=== PATIENT | male | born 1965 | race Caucasian/White ===

== ENCOUNTER 2017-03-01 18:42 | Inpatient (IN) | payer BC, OTHER ==
[~2017-03-01] VITALS: Ht 175.3 cm; Wt 96.6 kg
[2017-03-01 18:42] VITALS: BP_SYST 164
[~2017-03-01 18:42] MED LIST: AMLO1TAB15 PO; CANA300T PO; CARV25TA55 PO; CLOP75TA2 PO; EPLE25TA10 PO; EZET10TA PO; HYDR-3924 PO; INSU100V7 SUBCUT; ISOS30TA PO; LIP80 PO; METO-290 PO; NITSL SL; NPH,100V SUBCUT; PRO40 PO; [UNRECOGNIZED DRUG - CODE] PO; [UNRECOGNIZED DRUG - CODE] PO
[2017-03-01] MEDS ORDERED: DEXAMETHASONE SOD PHOSPHATE 10 MG/ML VIAL IVP ONE (19:00)
[2017-03-01] MEDS ORDERED: NACL 0.9% 1,000 ML IV ONE (19:00)
[2017-03-01] MEDS ORDERED: MORPHINE SULFATE 10 MG/ML VIAL IVP ONE (19:00)
[2017-03-01] MEDS ORDERED: PROCHLORPERAZINE EDISYLATE 10 MG/2 ML VIAL IVP ONE (19:00)
[2017-03-01] MEDS ORDERED: ONDANSETRON HCL 4 MG/2 ML VIAL IVP ONE (19:00)
[2017-03-01 19:07] LABS: MEAN CORPUSCULAR HEMOGLOBIN 28 pg (27-31); MEAN CORPUSCULAR HGB CONC 35 % (32-36)
[2017-03-01 19:12] LABS: HEMATOCRIT 46.1 % (36-54); HEMOGLOBIN 16.1 g/dL (14.0-18.0); RED BLOOD CELL COUNT(AUTO) 5.76 MIL/uL (4.2-6.2); WHITE BLOOD COUNT (AUTO) 12.6 K/uL (4.8-10.8)
[2017-03-01 19:13] LABS: MEAN CORPUSCULAR VOLUME 80 fL (79.0-98.0); PLATELET COUNT (AUTO) 231 K/uL (130-430)
[2017-03-01 19:26] LABS: ATYPICAL LYMPHOCYTES % 5 % (0-0); BAND % (MANUAL) 23 % (0-6); BASOPHILS % (MANUAL) 0 % (0-2); EOSINOPHILS % (MANUAL) 1 % (0-7); LYMPHOCYTES % (MANUAL) 15 % (20-46); MONOCYTES % (MANUAL) 3 % (0-11)
[2017-03-01 19:48] LABS: CALCIUM 8.5 mg/dL (8.4-11.0); CREATININE 0.81 mg/dL (0.55-1.30); POTASSIUM 3.8 mmol/L (3.5-5.1)
[2017-03-01 19:53] LABS: ALBUMIN 3.9 g/dL (3.4-4.8); TOTAL BILIRUBIN 1.2 mg/dL (0.0-1.0); TOTAL PROTEIN, SERUM 7.7 g/dL (6.4-8.3)
[2017-03-01 19:54] LABS: INR 0.9 (0.80-1.20)
[2017-03-01] MEDS ORDERED: 0.45% NACL 1,000 ML IV SCH (20:59)
[2017-03-01] MEDS ORDERED: MORPHINE 2 MG/ML INJ. SYRINGE IVP PRN (21:00)
[2017-03-01] MEDS ORDERED: HYDR-3610 PO (21:05)
[2017-03-01] MEDS ORDERED: SERT100T PO (21:05)
[2017-03-01] MEDS ORDERED: PROC5TAB58 PO (21:05)
[2017-03-01] MEDS ORDERED: HYDR-4023 PO (21:05)
[2017-03-01] MEDS ORDERED: CLON2TAB4 PO (21:05)
[2017-03-01] MEDS ORDERED: VALS320T10 PO (21:05)
[2017-03-01 21:24] VITALS: BP_SYST 174
[2017-03-01 22:19] LABS: BARBITURATE, URINE NEGATIVE (NEG <=200); BENZODIAZEPINE, URINE NEGATIVE (NEG <=150); CANNABINOID, URINE NEGATIVE (NEG <=50); COCAINE, URINE NEGATIVE (NEG <=150); METHAMPHETAMINES SCREEN,URINE NEGATIVE (NEG <=500); OPIATE, URINE POSITIVE (NEG <=100); PHENCYCLIDINE SCREEN,URINE NEGATIVE (NEG <=25); UR TRICYCLIC ANTIDEPRESSANTS NEGATIVE (NEG <=300); URINE AMPHETAMINE NEGATIVE (NEG <=500); URINE METHADONE NEGATIVE (NEG <=200); URINE OXYCODONE SCREEN NEGATIVE (NEG <=100); URINE PROPOXYPHENE SCREEN NEGATIVE (NEG <=300)
[2017-03-01] MEDS ORDERED: ALPRAZolam 0.25 MG TABLET PO PRN (22:30)
[2017-03-01] MEDS ORDERED: NOR10 PO (23:33)
[2017-03-01 23:49] LABS: CREATINE KINASE, TOTAL 135 U/L (39-308)
[2017-03-01] MEDS: MORPHINE SULFATE 10 MG/ML VIAL IVP PRN (23:58)
[2017-03-02] MEDS: ONDANSETRON HCL 4 MG/2 ML VIAL IVP PRN ×3 (00:14→13:06)
[2017-03-02 04:10] VITALS: BP_SYST 139
[2017-03-02] MEDS: MORPHINE SULFATE 10 MG/ML VIAL IVP PRN ×2 (06:10→14:32)
[2017-03-02 06:56] LABS: HEMATOCRIT 43.8 % (36-54); HEMOGLOBIN 14.7 g/dL (14.0-18.0); MEAN CORPUSCULAR HEMOGLOBIN 27 pg (27-31); MEAN CORPUSCULAR HGB CONC 34 % (32-36); MEAN CORPUSCULAR VOLUME 80 fL (79.0-98.0); PLATELET COUNT (AUTO) 214 K/uL (130-430); RED BLOOD CELL COUNT(AUTO) 5.45 MIL/uL (4.2-6.2); RED CELL DISTRIBUTION WIDTH 13.1 % (9.0-15.0); WHITE BLOOD COUNT (AUTO) 12.2 K/uL (4.8-10.8)
[2017-03-02 07:45] LABS: ALBUMIN 3.6 g/dL (3.4-4.8); CALCIUM 8.6 mg/dL (8.4-11.0); CREATININE 0.83 mg/dL (0.55-1.30); POTASSIUM 4.1 mmol/L (3.5-5.1); TOTAL BILIRUBIN 1.5 mg/dL (0.0-1.0); TOTAL PROTEIN, SERUM 7.5 g/dL (6.4-8.3)
[2017-03-02 08:27] LABS: BAND % (MANUAL) 5 % (0-6); LYMPHOCYTES % (MANUAL) 12 % (20-46)
[2017-03-02 08:28] LABS: BASOPHILS % (MANUAL) 0 % (0-2); EOSINOPHILS % (MANUAL) 0 % (0-7); MONOCYTES % (MANUAL) 1 % (0-11)
[2017-03-02] MEDS ORDERED: AMLODIPINE PO SCH (09:00)
[2017-03-02] MEDS ORDERED: VALSARTAN PO SCH (09:00)
[2017-03-02] MEDS ORDERED: EPLERENONE 25 MG PO SCH (09:00)
[2017-03-02 09:09] VITALS: BP_SYST 136
[2017-03-02] MEDS: ISOSORBIDE MONONITRATE 30 MG TAB.ER.24H PO SCH (10:54)
[2017-03-02] MEDS: ATORVASTATIN 20 MG TABLET PO SCH (10:56)
[2017-03-02] MEDS: SERTRALINE HCL 50 MG TABLET PO SCH (10:56)
[2017-03-02] MEDS: VALSARTAN 160 MG TABLET (DIOVAN) PO SCH (10:56)
[2017-03-02] MEDS: CARVEDILOL 25 MG TABLET (COREG) PO SCH ×2 (10:57→21:06)
[2017-03-02] MEDS: amLODIPine BESYLATE 10 MG TABLET PO SCH (10:57)
[2017-03-02] MEDS: HYDROCHLOROTHIAZIDE 25 MG TABLET (HCTZ) PO SCH (10:59)
[2017-03-02] MEDS: CLOPIDOGREL BISULFATE 75 MG TABLET PO SCH (10:59)
[2017-03-02] MEDS: ENOXAPARIN SODIUM 40 MG/0.4 ML SYRINGE SUBCUT SCH (11:11)
[2017-03-02] MEDS: PANTOPRAZOLE SODIUM 40 MG TAB PO SCH (11:11)
[2017-03-02 12:00] VITALS: BP_SYST 109
[2017-03-02] MEDS: NACL 0.9% 1,000 ML IV SCH ×2 (13:01→21:05)
[2017-03-02] MEDS: INSULIN ASPART 100 UNITS/ML, 10 ML VIAL (NovoLOG) SUBCUT PRN ×2 (13:04→17:20)
[2017-03-02 16:31] VITALS: BP_SYST 121
[2017-03-02 19:30] VITALS: BP_SYST 137
[2017-03-02] MEDS ORDERED: FENOFIBRATE MICRONIZED 200 MG PO SCH (21:00)
[2017-03-03] MEDS: ONDANSETRON HCL 4 MG/2 ML VIAL IVP PRN ×3 (00:05→23:50)
[2017-03-03] MEDS: MORPHINE SULFATE 10 MG/ML VIAL IVP PRN ×3 (00:06→23:52)
[2017-03-03 00:09] VITALS: BP_SYST 137
[2017-03-03] MEDS: INSULIN ASPART 100 UNITS/ML, 10 ML VIAL (NovoLOG) SUBCUT PRN ×5 (00:10→23:56)
[2017-03-03 00:12] VITALS: BP_SYST 122
[2017-03-03 04:01] VITALS: BP_SYST 124
[2017-03-03] MEDS: NACL 0.9% 1,000 ML IV SCH ×2 (06:21→17:50)
[2017-03-03 08:31] VITALS: BP_SYST 145
[2017-03-03] MEDS: VALSARTAN 160 MG TABLET (DIOVAN) PO SCH (08:35)
[2017-03-03] MEDS: HYDROCHLOROTHIAZIDE 25 MG TABLET (HCTZ) PO SCH (08:36)
[2017-03-03] MEDS: CARVEDILOL 25 MG TABLET (COREG) PO SCH ×2 (08:36→20:35)
[2017-03-03] MEDS: PANTOPRAZOLE SODIUM 40 MG TAB PO SCH (08:37)
[2017-03-03] MEDS: SERTRALINE HCL 50 MG TABLET PO SCH (08:37)
[2017-03-03] MEDS: ATORVASTATIN 20 MG TABLET PO SCH (08:37)
[2017-03-03] MEDS: CLOPIDOGREL BISULFATE 75 MG TABLET PO SCH (08:38)
[2017-03-03] MEDS: ISOSORBIDE MONONITRATE 30 MG TAB.ER.24H PO SCH (08:38)
[2017-03-03] MEDS: amLODIPine BESYLATE 10 MG TABLET PO SCH (08:38)
[2017-03-03] MEDS: ENOXAPARIN SODIUM 40 MG/0.4 ML SYRINGE SUBCUT SCH (08:39)
[2017-03-03 09:39] LABS: BASOPHILS % (AUTO) 0.1 % (0.0-2.0); EOSINOPHILS # (AUTO) 0.1 K/uL (0.0-0.4); EOSINOPHILS % (AUTO) 0.7 % (0.0-4.0); HEMATOCRIT 42.2 % (36-54); HEMOGLOBIN 13.8 g/dL (14.0-18.0); LYMPHOCYTES # (AUTO) 1.7 K/uL (1.0-5.5); LYMPHOCYTES % (AUTO) 15.6 % (20.5-51.5); MEAN CORPUSCULAR HEMOGLOBIN 26 pg (27-31); MEAN CORPUSCULAR HGB CONC 33 % (32-36); MEAN CORPUSCULAR VOLUME 80 fL (79.0-98.0); MONOCYTES # (AUTO) 0.5 K/uL (0.0-1.0); MONOCYTES % (AUTO) 4.8 % (1.7-9.3); NEUTROPHILS # (AUTO) 8.8 K/uL (1.8-7.7); NEUTROPHILS % (AUTO) 78.8 % (40.0-70.0); PLATELET COUNT (AUTO) 269 K/uL (130-430); RED BLOOD CELL COUNT(AUTO) 5.25 MIL/uL (4.2-6.2); RED CELL DISTRIBUTION WIDTH 13.6 % (9.0-15.0); WHITE BLOOD COUNT (AUTO) 11.1 K/uL (4.8-10.8)
[2017-03-03 09:56] LABS: ALBUMIN 3.9 g/dL (3.4-4.8); POTASSIUM 4.1 mmol/L (3.5-5.1); TOTAL BILIRUBIN 0.7 mg/dL (0.0-1.0); TOTAL PROTEIN, SERUM 7.7 g/dL (6.4-8.3)
[2017-03-03 23:52] VITALS: BP_SYST 134
[2017-03-04 03:40] VITALS: BP_SYST 132
[2017-03-04] MEDS: NACL 0.9% 1,000 ML IV SCH ×2 (04:08→13:40)
[2017-03-04] MEDS: INSULIN ASPART 100 UNITS/ML, 10 ML VIAL (NovoLOG) SUBCUT PRN ×3 (06:07→17:37)
[2017-03-04] MEDS: ONDANSETRON HCL 4 MG/2 ML VIAL IVP PRN ×3 (06:42→21:55)
[2017-03-04] MEDS: MORPHINE SULFATE 10 MG/ML VIAL IVP PRN ×3 (06:43→22:01)
[2017-03-04 07:01] LABS: BASOPHILS % (AUTO) 0.2 % (0.0-2.0); EOSINOPHILS # (AUTO) 0.2 K/uL (0.0-0.4); EOSINOPHILS % (AUTO) 3.1 % (0.0-4.0); HEMATOCRIT 38.1 % (36-54); HEMOGLOBIN 12.8 g/dL (14.0-18.0); LYMPHOCYTES # (AUTO) 2.7 K/uL (1.0-5.5); LYMPHOCYTES % (AUTO) 37.6 % (20.5-51.5); MEAN CORPUSCULAR HEMOGLOBIN 27 pg (27-31); MEAN CORPUSCULAR HGB CONC 34 % (32-36); MEAN CORPUSCULAR VOLUME 80 fL (79.0-98.0); MONOCYTES # (AUTO) 0.6 K/uL (0.0-1.0); MONOCYTES % (AUTO) 8.1 % (1.7-9.3); NEUTROPHILS # (AUTO) 3.8 K/uL (1.8-7.7); PLATELET COUNT (AUTO) 203 K/uL (130-430); RED BLOOD CELL COUNT(AUTO) 4.74 MIL/uL (4.2-6.2); RED CELL DISTRIBUTION WIDTH 13.5 % (9.0-15.0); WHITE BLOOD COUNT (AUTO) 7.3 K/uL (4.8-10.8)
[2017-03-04 07:03] LABS: CALCIUM 8.6 mg/dL (8.4-11.0); CREATININE 0.77 mg/dL (0.55-1.30); POTASSIUM 3.9 mmol/L (3.5-5.1)
[2017-03-04 08:00] VITALS: BP_SYST 140
[2017-03-04] MEDS: ISOSORBIDE MONONITRATE 30 MG TAB.ER.24H PO SCH (10:57)
[2017-03-04] MEDS: HYDROCHLOROTHIAZIDE 25 MG TABLET (HCTZ) PO SCH (10:58)
[2017-03-04] MEDS: PANTOPRAZOLE SODIUM 40 MG TAB PO SCH (10:58)
[2017-03-04] MEDS: VALSARTAN 160 MG TABLET (DIOVAN) PO SCH (10:59)
[2017-03-04] MEDS: CLOPIDOGREL BISULFATE 75 MG TABLET PO SCH (11:00)
[2017-03-04] MEDS: SERTRALINE HCL 50 MG TABLET PO SCH (11:00)
[2017-03-04] MEDS: ATORVASTATIN 20 MG TABLET PO SCH (11:00)
[2017-03-04] MEDS: amLODIPine BESYLATE 10 MG TABLET PO SCH (11:00)
[2017-03-04] MEDS: ENOXAPARIN SODIUM 40 MG/0.4 ML SYRINGE SUBCUT SCH (11:07)
[2017-03-04] MEDS: CARVEDILOL 25 MG TABLET (COREG) PO SCH ×2 (11:08→21:49)
[2017-03-04 16:13] VITALS: BP_SYST 130
[2017-03-04 19:26] VITALS: BP_SYST 135
[2017-03-05] MEDS: NACL 0.9% 1,000 ML IV SCH (00:10)
[2017-03-05] MEDS: INSULIN ASPART 100 UNITS/ML, 10 ML VIAL (NovoLOG) SUBCUT PRN ×2 (00:15→05:39)
[2017-03-05 00:45] VITALS: BP_SYST 136
[2017-03-05 04:00] VITALS: BP_SYST 120
[2017-03-05] MEDS: ONDANSETRON HCL 4 MG/2 ML VIAL IVP PRN (05:23)
[2017-03-05] MEDS: MORPHINE SULFATE 10 MG/ML VIAL IVP PRN ×2 (05:27→14:11)
[2017-03-05] MEDS: VALSARTAN 160 MG TABLET (DIOVAN) PO SCH (11:03)
[2017-03-05] MEDS ORDERED: TRAM50TA92 PO (11:04)
[2017-03-05] MEDS: CLOPIDOGREL BISULFATE 75 MG TABLET PO SCH (11:04)
[2017-03-05] MEDS: SERTRALINE HCL 50 MG TABLET PO SCH (11:05)
[2017-03-05] MEDS: amLODIPine BESYLATE 10 MG TABLET PO SCH (11:05)
[2017-03-05] MEDS: PANTOPRAZOLE SODIUM 40 MG TAB PO SCH (11:06)
[2017-03-05] MEDS: CARVEDILOL 25 MG TABLET (COREG) PO SCH (11:06)
[2017-03-05] MEDS: HYDROCHLOROTHIAZIDE 25 MG TABLET (HCTZ) PO SCH (11:07)
[2017-03-05] MEDS: ENOXAPARIN SODIUM 40 MG/0.4 ML SYRINGE SUBCUT SCH (11:08)
[2017-03-05] MEDS: ISOSORBIDE MONONITRATE 30 MG TAB.ER.24H PO SCH (11:08)
[2017-03-05] MEDS: ATORVASTATIN 20 MG TABLET PO SCH (11:13)
[2017-03-05 12:00] VITALS: BP_SYST 131
[2017-03-05 15:32] VITALS: BP_SYST 131
[2017-03-05 15:35] VITALS: BP_SYST 131
== END 2017-03-05 15:55 | disposition home or self-care (01) | DRG 440 ==
LOC: SED 18:42 → STU 20:59
PROVIDERS: ADMIT Internal Medicine; ATTEND Internal Medicine
DX: K85.90 Acute pancreatitis without necrosis or infection, unspecified (principal); E11.43 Type 2 diabetes mellitus with diabetic autonomic (poly)neuropathy; I10 Essential (primary) hypertension; K31.84 Gastroparesis; E78.5 Hyperlipidemia, unspecified; K76.0 Fatty (change of) liver, not elsewhere classified; E78.1 Pure hyperglyceridemia; F32.9 Major depressive disorder, single episode, unspecified; E11.319 Type 2 diabetes mellitus with unspecified diabetic retinopathy without macular edema; I25.10 Atherosclerotic heart disease of native coronary artery without angina pectoris; K21.9 Gastro-esophageal reflux disease without esophagitis; R16.1 Splenomegaly, not elsewhere classified; Z82.3 Family history of stroke; Z83.3 Family history of diabetes mellitus; Z95.5 Presence of coronary angioplasty implant and graft; Z88.1 Allergy status to other antibiotic agents; Z79.899 Other long term (current) drug therapy; Z79.4 Long term (current) use of insulin; Z82.49 Family history of ischemic heart disease and other diseases of the circulatory system
CPT/HCPCS: 36415; 71010; 76700-TC; 80048; 80053; 80061; 80307; 82550-TC; 82962; 83690-TC; 83880; 84484; 85007; 85025; 85027; 85379; 85610-TC; 85730-TC; 93005; 96361; 96374; 96375; 99285; G0482; J0780; J1100; J1650; J1815; J2270; J2405; J7030